=== PATIENT | female | born 1990 | race African-American/Black ===

== ENCOUNTER 2017-11-20 13:38 | Outpatient (CLI) | payer OTHER ==
--- NOTE | 2017-11-20 16:26 | MRI ---
MRI OF THE LEFT SHOULDER: DATE: 11/20/17. PROVIDED CLINICAL HISTORY: Left shoulder pain status post injury. FINDINGS: The components of the rotator cuff appear intact. Long-head biceps tendon appears intact and normall y located. There is marrow edema present at the medial aspects of the humeral head in the location typical for a reverse Hill-Sachs impaction injury. There is a nondisplaced pair of the posterior glenoid labrum w ith minimal associated periosteal stripping. No articular cartilage abnormality is evident. The rem ainder of the labrum appears grossly normal. The amount of fluid within the glenohumeral joint is physiologic. There is a physiologic amount of s ubacromial and subdeltoid bursal fluid. Mild acromioclavicular joint osteoarthrosis is present. No focal concerning regional muscular signal abnormality. IMPRESSION: Findings compatible with recent posterior left shoulder dislocation with reverse Hill-Sachs impaction injury and nondisplaced posterior glenoid labral tear. POS: [facility]
== END 2017-11-20 13:39 | disposition home or self-care (01) ==
LOC: SCSMRI 13:38
PROVIDERS: ATTEND Family Medicine
DX: S46.912D Strain of unspecified muscle, fascia and tendon at shoulder and upper arm level, left arm, subsequent encounter (principal)